=== PATIENT | female | born 1960 | race Caucasian/White ===

== ENCOUNTER 2024-02-22 09:49 | Outpatient (CLI) | payer BC, SELFPAY | END 2024-02-22 09:50 | disposition home or self-care (01) | PROVIDERS: PCP Emergency Medicine; Visit Provider Emergency Medicine | DX: M79.641 Pain in right hand (principal); M79.642 Pain in left hand; D64.9 Anemia, unspecified | CPT/HCPCS: 80048; 86140; 86200; 86431; 86618 ==

== ENCOUNTER 2024-04-10 07:45 | Day surgery (SDC) | payer BC, SELFPAY ==
[2024-04-09] MEDS: CEFAZOLIN 2 GM INJ IVP (09:50)
[2024-04-09] MEDS: TRANEXAMIC ACID 100 MG/ML INJ 1000 MG IV (09:55)
[2024-04-10] VITALS (26 sets, daily range): BP systolic 117–161; BP diastolic 66–89; PULSE 43–86; RESP 12–18; TEMP 36.1–36.6; O2SAT 96–100; BMI 25.0
[2024-04-10] MEDS: LACTATED RINGERS 1000 ML 1,000 ML 100 ML IV ×2 (07:35→10:10)
--- NOTE | 2024-04-10 08:04 | P.ORPRC_ITS ---
Procedure Note Date of procedure: 04/10/24 Procedure: PREOPERATIVE DIAGNOSIS: 1. Right knee osteoarthritis POSTOPERATIVE DIAGNOSES: 1. Right knee osteoarthritis PROCEDURE: 1. Right total knee arthroplasty SURGEON: Isacc Powell MD INSTALLATION TECH: Neelam Ely P.A.-C.. An accounting manager assistant controller was critical for this case to aide in patient positioning, suture manipulation, arm positioning, instrument positioning, and closure. ANESTHESIA: Spinal IMPLANTS: DePuy Attune femoral posterior stabilized component size 6, DePuy Attune tibial base rotating platform size 6, DePuy Attune tibial insert rotating platform posterior stabilized polyethylene size 6, 5 mm, and an Attune patella medialized dome size 38 mm. EBL: 50 ml COMPLICATIONS: None evident INDICATIONS: Odalis is a 64-year-old female who has chronic right knee pain secondary to osteoarthritis. Symptoms have worsened despite non operative treatment. Patient is now interested in proceeding with total knee arthroplasty for improved function, decreased pain and better quality of life. Prior to the procedure, risks and benefits of the operative and non operative treatment were discussed with patient. After discussion of risks, benefits, and alternatives of surgery, informed consent was obtained and the operative site was marked. 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 PROCEDURE: Patient was seen preoperatively and operative site was marked. Abductor canal and genicular nerve blocks were performed by anesthesia staff. Patient was then brought to the operating room, where spinal anesthesia was a dministered by the anesthesia staff. Patient was then placed into the supine position on the OR table and all bony prominences were well padded. Preoperative prophylactic antibiotics were administered intravenously. A tourniquet was placed on the thigh of the operative leg. The right lower extremity was prepped and draped in usual sterile fashion. A surgical time-out was performed confirming patient identity, surgical procedure, and surgical site. Operative extremity was elevated and exsanguinated with an Esmarch and tourniquet was inflated to 250 mmHg. The tourniquet remained inflated for 85 minutes before it was deflated. An anterior longitudinal incision was made and carried down through the subcutaneous tissues. The quadriceps tendon, medial patellar retinaculum, and patellar tendon were visualized. A medial quadriceps splitting parapatellar arthrotomy was performed. The proximal medial tibia was subperiosteal exposed distal to the joint line. The retropatellar fat pad was excised. The knee was flexed and patella everted. A curved osteotome was used to enter the semimembranous bursa medially at the level of the joint line. Medial and lateral tibial plateau osteophytes were removed with a rongeur. The medial meniscus was excised at the meniscal synovial junction. The anterior cruciate ligament was excised. A Z-retractor was placed medially and a right angle Hohmann retractor was placed anterior lateral to the lateral meniscus. A partial lateral meniscectomy was performed. The intramedullary drill was utilized to open the intramedullary canal. ?Intramedullary alignment guide was inserted. The distal femoral cutting block, set at 5 degrees of valgus with a distal femoral resection of 9 mm, was secured with pins, and the distal femoral osteotomy was performed. ?Using the posterior condylar referencing guide, femur was sized to a size 6, and pins were drilled for 3 degrees of external rotation, which corresponded with Whitesides line and the epicondylar axis. ?A 4-in-1 cutting jig was inserted at 3 degrees of external rotation. ?The anterior and posterior condylar cuts were performed followed by anterior and posterior chamfer cuts. A curved osteotome was used to remove osteophytes off the posterior condyles. The box cutting guide was then secured to the distal femur with pins and the box osteotomy was performed. ? ? We then turned our attention back to the tibia. ?Ranasall maneuver was performed and remainder of the lateral meniscus, medial meniscus, and PCL were excised. ?A retractor was placed along the posterior tibia. ?Extramedullary guide was secured around the ankle in line with the subcutaneous tibial crest. ?The tibial cutting block, set to remove 2 mm of bone from medial tibial plateau and 9 mm of bone from lateral tibial plateau, was secured proximally with pins. ?Tibial osteotomy was performed with care taken to protect the collateral ligaments. ?Spacer blocks were inserted, and knee was noted to be tight in flexion and exte nsion. Therefore tibial cutting block secured back to the proximal tibia and set to remove additional 2 mm of bone from the proximal tibia. Spacer blocks were reinserted, which confirmed symmetric flexion and extension gaps.?The tibia was then sized to a size 6, and tibial base plate was secured. Tibia was then prepped with the appropriate drill and punch. Trial femur and tibial components with a 5 mm tibial polyethylene component were inserted. The knee was then brought out to full extension. ?The patella was everted and osteochondral junction was exposed. ?The patella measured 24 mm in thickness. ?The patellar osteotomy was performed, leaving 14 mm of remnant patella. ?Three lug holes were drilled for the 38 mm patella button and the patella button was inserted. The knee was brought through a full range of motion. ?Soft tissue tension, collateral ligament stability, and patella tracking were confirmed to be satisfactory. ?Trial components were then removed. ??A small drill was used to create small holes in the dense subchondral bone of the medial tibia plateau. The exposed bony surfaces of the tibia, femur, and patella were then thoroughly irrigated with pulse lavage and dried. ? Cement was mixed on the back table and was subsequently introduced onto the tibia and tibial base plate. ?Tibial base plate was then impacted into position, and extruded cement was removed. ?Cement was then applied to the distal femur and posterior condyles of the femoral prosthesis. ?The femoral prosthesis was impacted into position, extruded cement was removed, and a trial polyethylene was inserted. ?Knee was then brought out to full extension for remainder of drying. ?Cement was then applied to the patella and patellar button. The patella button was clamped into position, and extruded cement was removed. ?While the cement was drying, knee was soaked in a sterile iodine solution. ? After the cement had dried, the knee was flexed and the trial tibial component was removed. The tourniquet was released . The soft tissues were then irrigated with pulse lavaged and hemostasis was achieved with electrocautery. A formal size 6, 5 mm rotating platform posterior stabilized polyethylene was then secured into position. ? The parapatellar arthrotomy was closed with #1 Vicryl [id number] interrupted sutures followed by a running #1 Stratafix suture. ?Subcutaneous soft tissues were again irrigated normal saline. Skin was closed with 2-0 Vicryl inverted, interrupted, subcutaneous stitches followed by running 2-0 Stratafix and 4-0 Monocryl subcuticular stitches. ?The incision was then sealed with Dermabond and sterile dressing was applied. ?The patient was then transferred to the recovery room in stable condition. POSTOPERATIVE PLAN: 1. Patient will be admitted to the hospital, where she will follow the postoperative total knee arthroplasty protocol. 2. Mobilize with physical therapy and occupational therapy. - Weight bear as tolerated right lower extremity. 3. Pain control: - Acetaminophen and Oxycodone for pain as needed. -IV pain medications for breakthrough pain -Ice for pain and swelling 4. Postoperative prophylactic antibiotics x2 doses 5. DVT prophylaxis: - aspirin 81 mg b.i.d. for 35 days - SCDs 6. Follow-up in Orthopedic Clinic in 1-2 weeks.
--- NOTE | 2024-04-10 08:04 | W.PM.H&PU ---
History & Physical Update History & Physical Update H&P Reviewed and patient assessed: No changes noted
[2024-04-10] MEDS: ACETAMINOPHEN 500 MG TABLET 1000 MG PO ×3 (08:22→20:03)
[2024-04-10] MEDS: SODIUM CHLORIDE 0.9 % (FLUSH) 10 ML SYRINGE IVF (08:22)
[2024-04-10] MEDS: OXYCODONE (CR) 10 MG TAB.ER.12H PO (08:22)
[2024-04-10] MEDS: fentaNYL 100 MCG/2 ML inj IVP (09:25)
[2024-04-10] MEDS: MIDAZOLAM HCL 1 MG/ML inj IVP (09:25)
--- NOTE | 2024-04-10 09:39 | SUR.PREOP ---
TIME?OUT:?09 PT/RN/MDA?VERIFICATION?OF?SURGICAL?SITE Right Knee,?PROCEDURE Nerve Block,?AND?CONSENT OBTAINED?PRIOR?TO?INVASIVE?PROCEDURE.
--- NOTE | 2024-04-10 09:40 | W.PM.NB ---
Nerve Block Nerve Block Time Seen by Provider: 09:25 Date Seen: 04/10/24 Type of block requested by surgeon for post-operative analgesia: adductor canal Side: right Time out performed: Yes Verification of patient name: Yes Verification of date of : Yes Site marking: site marked Name of person performing procedure: Jarrett Continuous monitoring Was continuous monitoring of O2 sat, B/P, court recording monitor, recorded every 15 minutes?: Yes Procedure Checklist: sterile prep, needles and gloves Ultrasound guided. Images saved: Yes Medications given in 5ml increments after negative aspiration: Ropivicaine %: 0.5 mL: 20 Needle gauge: 20 Decadron (mg): 10 Precedex (mcg): 25 Patient tolerated procedure well: Yes Block Charges Block Charge (with Pro Fee): Femoral Nerve Use of Ultrasound Machine for Block: Yes- US Guidance/pain block
--- NOTE | 2024-04-10 09:43 | W.PM.NB ---
Nerve Block Nerve Block Time Seen by Provider: 09:25 Date Seen: 04/10/24 Type of block requested by surgeon for post-operative analgesia: geniculars Side: right Time out performed: Yes Verification of patient name: Yes Verification of date of : Yes Site marking: site marked Name of person performing procedure: daryl Continuous monitoring Was continuous monitoring of O2 sat, B/P, fish and game warden, recorded every 15 minutes?: Yes Procedure Checklist: sterile prep and needles Ultrasound guided. Images saved: No Medications given in 5ml increments after negative aspiration: Ropivicaine %: 0.5 mL: 12 Needle gauge: 22 Decadron (mg): 10 Precedex (mcg): 25 Patient tolerated procedure well: Yes Block Charges Block Charge (with Pro Fee): Genicular Nerve Block Use of Ultrasound Machine for Block: No
--- NOTE | 2024-04-10 12:14 | CRLHL7_ITS ---
For Patients: As a result of the Cures Act, medical imaging exams and procedure reports are released immediately into your electronic medical record. You may view this report before your referring provider. If you have questions, please contact your health care provider. Indication: Right knee arthroplasty. Technique: Two views right knee Comparison: None. Findings: Right knee arthroplasty in anatomic alignment. No periprosthetic lucency or fracture. Expected postsurgical soft tissue changes. Impression: Right knee arthroplasty without radiographic evidence of complication. Dictated by Gilles Alves MD @ 04/11/2024 12:10:57 PM (Electronically Signed)
[2024-04-10] MEDS: fentaNYL 100 MCG/2 ML inj 50 MCG IVP (12:45)
--- NOTE | 2024-04-10 12:46 | W.ANESCHARGE ---
Anesthesia Charges Start Date/Time Anesthesia Start Date: 04/10/24 Anesthesia Start Time: 09:40 Stop Date/Time Anesthesia Stop Date: 04/10/24 Anesthesia Stop Time: 12:41
--- NOTE | 2024-04-10 13:06 | SUR.PHASEI ---
timeout for block completed at 1300 for right leg by MAGNOLIA Churchill and RN Kate Peck present. patient and site verified.
--- NOTE | 2024-04-10 13:13 | P.NB_ITS ---
Nerve Block Nerve Block Time Seen by Provider: 13:05 Date Seen: 04/10/24 Type of block requested by surgeon for post-operative analgesia: adductor canal Side: right Time out performed: Yes Verification of patient name: Yes Verification of date of : Yes Name of person performing procedure: MAGNOLIA Lay Continuous monitoring Was continuous monitoring of O2 sat, B/P, color television console monitor, recorded every 15 minutes?: Yes Procedure Checklist: sterile prep, needles and gloves Ultrasound guided. Images saved: Yes Medications given in 5ml increments after negative aspiration: Marcaine %: 0.5 mL: 10 Needle gauge: 20 and Lidocaine %: 2 mL: 5 Needle gauge: 20 Patient tolerated procedure well: Yes Block Charges Block Charge (with Pro Fee): Femoral Nerve Use of Ultrasound Machine for Block: Yes- US Guidance/pain block
--- NOTE | 2024-04-10 15:08 | PC.NURSE ---
End of shift: Pt underwent Sx RTKA and arrived on the floor @ 1334. Pt is A&Ox3, pleasant, and cooperative. VSS on RA. Baseline HR ranges in the 40-50s. Denies N/V/CP/SOB.?Reports pain 4-5/10 to incision site, relief from scheduled medication. Incision site is wrapped, CDI, ice applied.?Pt has been resting intermittently. Tolerating clear liquids well. Call light within reach. ?
[2024-04-10] MEDS: OXYCODONE 5 MG TABLET PO (19:57)
[2024-04-10] MEDS: SENNOSIDES 1 TAB TABLET 2 TAB PO (20:06)
[2024-04-10] MEDS: ASPIRIN 81 MG TABLET EC PO (20:06)
--- NOTE | 2024-04-10 20:20 | PM.IMCN1 ---
Date of Consult Consult date: 04/10/24 Requesting Physician: Orthopedics Primary Care Provider: Sonia Ray Consult Narrative Narrative: HOSPITALIST CONSULT Procedure: Right total knee arthroplasty SURGEON: Isacc Powell MD EBL: 50 ml COMPLICATIONS: None evident The hospital medicine team was asked by the orthopedic surgery team to manage the patient's anemia; post operative cares There have been no perioperative complications. I have updated and reviewed the active medical problems, past medical history, past surgical history, social history, allergies and medications in our electronic EMR. This includes a cross reference to care everywhere in [facility] and with [facility] databases. PHYSICAL EXAM: CODE STATUS: FULL CODE CONSTITUTIONAL: Conversive, good historian. A/O. Knows setting and context. VITAL SIGNS: see record. HEENT: Normocephalic, atraumatic. PERRL, EOMI, conjunctivae pink, no scleral icterus. Ears and nose externally normal. Pharynx normal. NECK: No JVD. No carotid bruit, no thyromegaly, no adenopathy. CHEST: Clear to auscultation bilaterally HEART: S1 and S2 normal. ABDOMEN: Flat, soft, nontender. Normal bowel sounds. Moderately obese. EXTREMITIES: No edema. MUSCULOSKELETAL: right knee SDI NEURO: Cranial nerves intact. Mentation normal. Normal affect. SKIN: No rashes, petechiae, concerning changes PSYCHIATRIC: Mentation normal. INVESTIGATIONS: EMR Reviewed; Pre-OP Reviewed DISPOSITION: DVT: Agree with Ortho team decision GI: PO intake PFSH [facility] Medical History (Updated 04/10/24 @ 20:24 by Maureen Powell MD) Anemia ?D64.9 - Anemia, unspecified (ICD-10) Bilateral hand pain ?M79.641 - Pain in right hand (ICD-10) ?M79.642 - Pain in left hand (ICD-10) History of back problems ?Z87.39 - Personal history of other diseases of the musculoskeletal system and connective tissue (ICD-10) Arthritis ?M19.90 - Unspecified osteoarthritis, unspecified site (ICD-10) Surgical History (Updated 04/10/24 @ 20:24 by Maureen Powell MD) Status post right knee replacement ?Z96.651 - Presence of right artificial knee joint (ICD-10) History of bilateral tubal ligation ?Z98.51 - Tubal ligation status (ICD-10) History of facelift ?Z98.890 - Other specified postprocedural states (ICD-10) H/O liposuction of abdomen ?Z98.890 - Other specified postprocedural states (ICD-10) Hernia ?K46.9 - Unspecified abdominal hernia without obstruction or gangrene (ICD-10) History of tonsillectomy ?Z90.89 - Acquired absence of other organs (ICD-10) Family History Father Lung cancer Mother Stomach cancer Stroke Social History (Updated 03/28/24 @ 09:59 by Sonia Ray MD) 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, 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, , 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, elliptical, former smoker quit 10 yr ago, 3 etoh/month Meds Home Medications and Allergies Allergies Allergy/AdvReac Type Severity Reaction Status Date / Time diclofenac Allergy Severe Joint Pain Verified 04/10/24 07:57 Penicillins Allergy Unknown Rash Verified 04/10/24 07:57 Exam Const: Vital Signs, click to edit/add: Vital Signs - 24 hr 04/10/24 08:16 04/10/24 09:25 04/10/24 09:30 Temperature 97.7 F Pulse Rate 61 54 L 64 Respiratory Rate 18 18 18 Blood Pressure 131/81 143/81 H 127/69 Pulse Oximetry 100 100 100 Oxygen Delivery Me thod Room Air Nasal Cannula Nasal Cannula Oxygen Flow Rate 2 2 04/10/24 12:40 04/10/24 12:45 04/10/24 12:50 Temperature 97.0 F L Pulse Rate 58 L 61 52 L Respiratory Rate 14 16 16 Blood Pressure 129/81 123/81 137/85 Pulse Oximetry 96 99 98 Oxygen Delivery Me thod Room Air Room Air Room Air Oxygen Flow Rate 04/10/24 12:55 04/10/24 13:00 04/10/24 13:05 Temperature Pulse Rate 47 L 51 L 59 L Respiratory Rate 16 18 16 Blood Pressure 126/73 126/82 131/70 Pulse Oximetry 98 96 99 Oxygen Delivery Me thod Room Air Room Air Room Air Oxygen Flow Rate 04/10/24 13:10 04/10/24 13:15 04/10/24 13:20 Temperature 97.4 F L Pulse Rate 56 L 55 L 51 L Respiratory Rate 14 16 16 Blood Pressure 125/74 124/71 127/80 Pulse Oximetry 99 100 99 Oxygen Delivery Me thod Room Air Room Air Room Air Oxygen Flow Rate 04/10/24 13:25 04/10/24 13:34 04/10/24 13:50 Temperature 97.2 F L 97.8 F 97.5 F L Pulse Rate 48 L 49 L 46 L Respiratory Rate 16 12 12 Blood Pressure 143/78 H 127/66 135/69 Pulse Oximetry 99 99 99 Oxygen Delivery Me thod Room Air Room Air Room Air Oxygen Flow Rate 04/10/24 14:05 04/10/24 14:20 04/10/24 14:35 Temperature 97.9 F 97 F L 97.6 F Pulse Rate 45 L 43 L 47 L Respiratory Rate 16 12 16 Blood Pressure 138/78 136/76 143/78 H Pulse Oximetry 98 99 98 Oxygen Delivery Me thod Room Air Room Air Room Air Oxygen Flow Rate 04/10/24 14:58 04/10/24 15:00 04/10/24 15:30 Temperature 97.8 F 97.5 F L Pulse Rate 48 L 49 L Respiratory Rate 16 16 16 Blood Pressure 147/89 H 161/85 H Pulse Oximetry 100 97 97 Oxygen Delivery Me thod Room Air Room Air Room Air Oxygen Flow Rate 04/10/24 16:00 04/10/24 17:00 04/10/24 18:00 Temperature 97.9 F Pulse Rate 52 L 49 L 55 L Respiratory Rate 16 16 16 Blood Pressure 147/89 H 153/85 H 130/66 Pulse Oximetry 99 98 99 Oxygen Delivery Me thod Room Air Room Air Room Air Oxygen Flow Rate Assessment and Plan Assessment and plan (1) Status post right knee replacement: Problem comment: 04/10/24 Dr. Karthikeyan Powell [facility] medicine team is happy to comanage thru discharge agree with aspirin BID for VTE ppx Status: Acute (2) Anemia: Problem comment: noted to 11.9, repeat a month later 11.2 will have her see her PCP for further workup Status: Acute
[2024-04-10] MEDS: CEFAZOLIN 2 GM in 0.9 % SODIUM CHLORIDE Mini-bag 100 ML IVPB (21:41)
[2024-04-11] MEDS: OXYCODONE 5 MG TABLET PO ×4 (00:02→08:17)
[2024-04-11] MEDS: HYDROmorphone 0.5 mg/0.5 ml inj IVP ×2 (00:11→05:23)
[2024-04-11] MEDS: ACETAMINOPHEN 500 MG TABLET 1000 MG PO ×2 (03:40→09:53)
[2024-04-11] MEDS: SODIUM CHLORIDE 0.9 % (FLUSH) 10 ML SYRINGE IVF (03:48)
[2024-04-11] MEDS: ONDANSETRON 2 MG/ML inj 4 MG IVP ×2 (03:48→09:52)
[2024-04-11] MEDS: CEFAZOLIN 2 GM in 0.9 % SODIUM CHLORIDE Mini-bag 100 ML IVPB (03:58)
[2024-04-11 05:00] VITALS: BP 143/75; PULSE 70; RESP 20; TEMP 37.7; O2SAT 96
[2024-04-11 06:28] LABS: Basophils Percent Auto 0.1 % (0.0-3.0); Hematocrit 29.9 % (33.0-51.0); Hemoglobin* 9.9 gm/dL (12.0-16.0); Immature Granulocytes Pct Auto 0.2 %; Mean Corpuscular HGB Conc 33 gm/dL (32-36); Mean Corpuscular Hemoglobin 30 pg (26-34); Mean Corpuscular Volume 91 fL (80-100); Monocytes Percent Auto 5.7 % (0.0-11.0); Platelet Count* 238 K/uL (140-440); RDW Coefficient of Variation % 12.9 % (11.5-15.5); White Blood Count* 15.94 K/uL (4.50-11.00)
[2024-04-11 06:30] LABS: Slide Review Reflex No
[2024-04-11] MEDS: SENNOSIDES 1 TAB TABLET 2 TAB PO (08:15)
[2024-04-11] MEDS: ASPIRIN 81 MG TABLET EC PO (08:16)
--- NOTE | 2024-04-11 08:29 | P.ORPN_ITS ---
Subjective Subjective Time Seen by Provider: 08:00 Date Seen: 04/11/24 Principal diagnosis: Day 1 s/p right TKA Interval history: Melissa is resting comfortably in her recliner. She explains her right knee and right ankle pain improves while resting in the recliner as opposed to the bed. Admits: mild nausea after receiving hydromorphone. Denies: chest pain, SOB, fever, chills, numbness/tingling distally, vomiting. Denies postop bowel mov ement, but admits to flatulence. No acute concerns. Ortho Exam Narrative Exam Narrative: Incision/Dressing: Dressing appears clean and dry. No drainage present. Mepilex intact. Right knee appears moderately swollen but supple with no obvious erythema, fluctuance or excessive warmth. No ecchymosis or erythematous streaking. Warmth around the wound is appropriate. Ice is being utilized as needed. CMS: Intact distally with 2+ Dorsalis pedis and Posterior Tibial pulses. 5/5 motor strength dorsal and plantar flexion. Confirmed sensation distally. Unable to preform straight leg raise, but I am able to palpate quad muscle activation. Calf: Bilateral calves are supple, with no swelling, pain, tenderness, erythema, discoloration or coolness to the touch. Constitutional: Patient is alert and oriented x3. Patient is in no acute distress and converses without labored breathing. Patient is able to make decisions and demonstrates good insight. Patient is pleasant and cooperative. Affect is full range and appropriate for the circumstances. Const Vital Signs, click to edit/add: Vital Signs - 24 hr 04/10/24 09:25 04/10/24 09:30 04/10/24 12:40 Temperature 97.0 F L Pulse Rate 54 L 64 58 L Pulse Rate [Pulse Oximeter] Respiratory Rate 18 18 14 Blood Pressure 143/81 H 127/69 129/81 Blood Pressure [Right Arm] Pulse Oximetry 100 100 96 Oxygen Delivery Method Nasal Cannula Nasal Cannula Room Air Oxygen Flow Rate 2 2 04/10/24 12:45 04/10/24 12:50 04/10/24 12:55 Temperature Pulse Rate 61 52 L 47 L Pulse Rate [Pulse Oximeter] Respiratory Rate 16 16 16 Blood Pressure 123/81 137/85 126/73 Blood Pressure [Right Arm] Pulse Oximetry 99 98 98 Oxygen Delivery Method Room Air Room Air Room Air Oxygen Flow Rate 04/10/24 13:00 04/10/24 13:05 04/10/24 13:10 Temperature Pulse Rate 51 L 59 L 56 L Pulse Rate [Pulse Oximeter] Respiratory Rate 18 16 14 Blood Pressure 126/82 131/70 125/74 Blood Pressure [Right Arm] Pulse Oximetry 96 99 99 Oxygen Delivery Method Room Air Room Air Room Air Oxygen Flow Rate 04/10/24 13:15 04/10/24 13:20 04/10/24 13:25 Temperature 97.4 F L 97.2 F L Pulse Rate 55 L 51 L 48 L Pulse Rate [Pulse Oximeter] Respiratory Rate 16 16 16 Blood Pressure 124/71 127/80 143/78 H Blood Pressure [Right Arm] Pulse Oximetry 100 99 99 Oxygen Delivery Method Room Air Room Air Room Air Oxygen Flow Rate 04/10/24 13:34 04/10/24 13:50 04/10/24 14:05 Temperature 97.8 F 97.5 F L 97.9 F Pulse Rate 49 L 46 L 45 L Pulse Rate [Pulse Oximeter] Respiratory Rate 12 12 16 Blood Pressure 127/66 135/69 138/78 Blood Pressure [Right Arm] Pulse Oximetry 99 99 98 Oxygen Delivery Method Room Air Room Air Room Air Oxygen Flow Rate 04/10/24 14:20 04/10/24 14:35 04/10/24 14:58 Temperature 97 F L 97.6 F 97.8 F Pulse Rate 43 L 47 L 48 L Pulse Rate [Pulse Oximeter] Respiratory Rate 12 16 16 Blood Pressure 136/76 143/78 H 147/89 H Blood Pressure [Right Arm] Pulse Oximetry 99 98 100 Oxygen Delivery Method Room Air Room Air Room Air Oxygen Flow Rate 04/10/24 15:00 04/10/24 15:30 04/10/24 16:00 Temperature 97.5 F L Pulse Rate 49 L 52 L Pulse Rate [Pulse Oximeter] Respiratory Rate 16 16 16 Blood Pressure 161/85 H 147/89 H Blood Pressure [Right Arm] Pulse Oximetry 97 97 99 Oxygen Delivery Method Room Air Room Air Room Air Oxygen Flow Rate 04/10/24 17:00 04/10/24 18:00 04/10/24 19:15 Temperature 97.9 F 97.7 F Pulse Rate 49 L 55 L 76 Pulse Rate [Pulse Oximeter] Respiratory Rate 16 16 16 Blood Pressure 153/85 H 130/66 117/70 Blood Pressure [Right Arm] Pulse Oximetry 98 99 99 Oxygen Delivery Method Room Air Room Air Room Air Oxygen Flow Rate 04/10/24 22:47 04/10/24 22:47 04/10/24 22:47 Temperature 97.8 F Pulse Rate Pulse Rate [Pulse Oximeter] 86 Respiratory Rate 16 18 18 Blood Pressure Blood Pressure [Right Arm] 134/76 Pulse Oximetry 98 98 Oxygen Delivery Method Room Air Room Air Oxygen Flow Rate 04/11/24 05:00 Temperature 100 F H Pulse Rate Pulse Rate [Pulse Oximeter] 70 Respiratory Rate 20 Blood Pressure Blood Pressure [Right Arm] 143/75 H Pulse Oximetry 96 Oxygen Delivery Method Room Air Oxygen Flow Rate Documenting provider has reviewed patient's vital signs: yes Assessment and Plan Assessment and plan (1) Status post right knee replacement: Problem details: DOS: 04/10/24; Dr. Karthikeyan Powell Status: Acute Assessment and Plan: - Complete 23 hour perioperative antibiotics. - PT/OT consults for education and assistance. - Weight bear as tolerated with a walker for assistance. - Prescribed analgesics as needed. Patient is content with current narcotic medications. Minimize narcotic pain medication use; wean off and discontinue as soon as possible. Discharge pain medications include acetaminophen and oxycodone. Patient is aware she will not be discharged with a script for Dilaudid. - DVT prophylaxis: aspirin 81 mg BID x 35 days. Also, frequent ambulation and ankle pumps when sedentary. - Social consult for discharge planning. - Anticipate patient will be discharged to home later this morning if the patient remains medically stable, pain is controlled and is safe with ambulation. - Return to clinic in 1 week for a wound check. Mepilex dressing will be removed at this appointment. Remove sooner if dressing becomes saturated. - Return to clinic in [address] Powell. - Phone Orthopedics with any questions or concerns. [phone]
[2024-04-11 09:00] VITALS: BP 113/63; PULSE 76; RESP 16; TEMP 36.8; O2SAT 98
--- NOTE | 2024-04-11 11:31 | PC.NURSE ---
Pt was discharged @ 1058 via wheelchair. Accompanied by son back to home. Discharge and belonging forms signed.
== END 2024-04-11 10:58 | disposition home or self-care (01) ==
LOC: OR 07:47 → MEDSURG 07:50
PROVIDERS: PCP Emergency Medicine; Visit Provider Orthopaedic Surgery
PROC: (CPT 27447; principal; 2024-04-10 10:30)
DX: M17.11 Unilateral primary osteoarthritis, right knee (principal); G89.18 Other acute postprocedural pain; D64.9 Anemia, unspecified
CPT/HCPCS: 27447; 01402; 36415; 64447; 64454; 73560; 76942; 85025; 97116; 97161; 97165; 97530; A9270; C1776; J0665; J0690; J1100; J1170; J2250; J2405; J2704; J2795; J3010; J7120

== ENCOUNTER 2024-06-19 09:15 | Outpatient (RCR) | payer BC, SELFPAY | END 2024-09-19 15:20 | disposition home or self-care (01) | PROVIDERS: PCP Emergency Medicine; Visit Provider Orthopaedic Surgery | DX: M17.11 Unilateral primary osteoarthritis, right knee (principal); Z96.651 Presence of right artificial knee joint; M25.561 Pain in right knee; Z74.09 Other reduced mobility; R26.9 Unspecified abnormalities of gait and mobility; R26.81 Unsteadiness on feet; M62.81 Muscle weakness (generalized); Z51.89 Encounter for other specified aftercare | CPT/HCPCS: 73721; 80048; 82728; 97110; 97112; 97116; 97140; 97161; 97164 ==

== ENCOUNTER 2025-01-23 14:42 | Outpatient (CLI) | payer BC, SELFPAY ==
--- NOTE | 2025-01-23 15:00 | CRLHL7_ITS ---
For Patients: As a result of the Century Cures Act, medical imaging exams and procedure reports are released immediately into your electronic medical record. You may view this report before your referring provider. If you have questions, please contact your health care provider. INDICATION: BILATERAL SCREENING MAMMOGRAM, ASYMPTOMATIC 64 Y/O FEMALE COMPARISON: 05/20/2021, 10/30/2018, 08/24/2016 TECHNIQUE: Digital mammogram in CC and MLO projections including computer-aided detection (CAD) and tomosynthesis. BREAST COMPOSITION: There are scattered areas of fibroglandular density. FINDINGS: No suspicious findings. ASSESSMENT: BI-RADS 2 Benign RECOMMENDATION: Annual screening mammogram. A lay language report of this examination will be provided to the patient. Dictated by: Michael Christianson MD @ 01/24/2025 09:17:58 (Electronically Signed)
== END 2025-01-23 14:43 | disposition home or self-care (01) ==
LOC: MAMMO 14:42
PROVIDERS: PCP Emergency Medicine; Visit Provider Emergency Medicine
DX: Z12.31 Encounter for screening mammogram for malignant neoplasm of breast (principal)
CPT/HCPCS: 77063; 77067